=== PATIENT | female | born 1970 | race Caucasian/White ===

== ENCOUNTER 2018-09-04 21:44 | Emergency (ER) | payer MEDICAID ==
[~2018-09-04] VITALS: Ht 162.6 cm; Wt 68.2 kg
[2018-09-05 01:10] VITALS: BP 149/100
[2018-09-05] MEDS ORDERED: ALBU18HF2 IH (01:43)
[2018-09-05] MEDS ORDERED: ketorolac tromethamine 15mg/ml inj. IM ONE (02:00)
== END 2018-09-05 02:28 | disposition home or self-care (01) ==
LOC: ER 21:44
DX: J22 Unspecified acute lower respiratory infection (principal); F17.200 Nicotine dependence, unspecified, uncomplicated; Z88.8 Allergy status to other drugs, medicaments and biological substances; Z88.5 Allergy status to narcotic agent
CPT/HCPCS: 96372; 99283; J1885

== ENCOUNTER 2019-06-21 16:28 | Emergency (ER) | payer MEDICAID ==
[~2019-06-21] VITALS: Ht 162.6 cm; Wt 77.4 kg
[~2019-06-21 16:28] MED LIST: ALBU18HF2 IH
[2019-06-21] MEDS ORDERED: proCHLORperazine 10 MG/2 ml inj IV ONE (19:15)
[2019-06-21] MEDS ORDERED: pseudoephedrine 30mg tablet PO ONE (19:15)
[2019-06-21] MEDS ORDERED: normal saline 1000ML IV soln IVB ONE (19:15)
[2019-06-21] MEDS ORDERED: morphine 4 MG/ML inj SYRINge IV ONE (19:15)
[2019-06-21 21:40] VITALS: BP 149/83
== END 2019-06-21 21:41 | disposition home or self-care (01) ==
LOC: ER 16:29
DX: R51 Headache (principal); R09.89 Other specified symptoms and signs involving the circulatory and respiratory systems; R11.10 Vomiting, unspecified; F17.200 Nicotine dependence, unspecified, uncomplicated; Z88.6 Allergy status to analgesic agent; Z88.5 Allergy status to narcotic agent; Z79.899 Other long term (current) drug therapy
CPT/HCPCS: 70450; 96374; 96375; 99284; J0780; J2270; J7030

== ENCOUNTER 2021-11-09 19:46 | Emergency (ER) | payer MEDICAID ==
[~2021-11-09] VITALS: Ht 162.6 cm; Wt 86.4 kg
[2021-11-09] MEDS ORDERED: ketorolac trometh. 30mg/ml inj. IM ONE (21:50)
[2021-11-09 22:02] VITALS: BP 172/101
== END 2021-11-09 22:04 | disposition home or self-care (01) ==
LOC: ER 19:46
DX: S90.32XA Contusion of left foot, initial encounter (principal); I51.9 Heart disease, unspecified; Z88.6 Allergy status to analgesic agent; Z88.5 Allergy status to narcotic agent; I50.9 Heart failure, unspecified; Z79.899 Other long term (current) drug therapy; W19.XXXA Unspecified fall, initial encounter; Y93.89 Activity, other specified; Y92.89 Other specified places as the place of occurrence of the external cause; Y99.8 Other external cause status
CPT/HCPCS: 73630; 96372; 99283; J1885; A6449; L3260